=== PATIENT | female | born 1935 | race Caucasian/White ===

== ENCOUNTER 2019-02-02 14:01 | Emergency (ER) | payer OTHER ==
[~2019-02-02 14:01] MED LIST: LIPI20 PO; PLA75 PO; PROAIR HFA0.09 MG/A1 INH; ZES10 PO
[2019-02-02 14:27] VITALS: Ht 165.1 cm
[2019-02-02 17:57] VITALS: BP 169/68
== END 2019-02-02 17:56 | disposition home or self-care (01) ==
LOC: ED 14:01
DX: S41.111A Laceration without foreign body of right upper arm, initial encounter (principal); I10 Essential (primary) hypertension; E78.00 Pure hypercholesterolemia, unspecified; F17.210 Nicotine dependence, cigarettes, uncomplicated; J44.1 Chronic obstructive pulmonary disease with (acute) exacerbation; Z88.0 Allergy status to penicillin; Z88.6 Allergy status to analgesic agent; Z88.5 Allergy status to narcotic agent; Z88.8 Allergy status to other drugs, medicaments and biological substances; Z88.1 Allergy status to other antibiotic agents; W01.0XXA Fall on same level from slipping, tripping and stumbling without subsequent striking against object, initial encounter; Y93.89 Activity, other specified; Y92.89 Other specified places as the place of occurrence of the external cause; Y99.8 Other external cause status
CPT/HCPCS: 90715